=== PATIENT | male | born 1985 | race Caucasian/White ===

== ENCOUNTER 2020-05-09 09:20 | Emergency (ER) | payer SELFPAY ==
[~2020-05-09] VITALS: Ht 162 cm; Wt 80.0 kg
[2020-05-09] MEDS ORDERED: ONDANSETRON 4 MG/2 ML (SDV) Z0FRAN IVP ONE (09:45)
[2020-05-09] MEDS ORDERED: LACTATED RINGERS 1,000 ML IV ONE (09:45)
[2020-05-09 09:56] LABS: BASOPHILS % (AUTO) 0 % (0-10); EOSINOPHILS % (AUTO) 1 % (0-10); HEMATOCRIT 45 % (40-54); HEMOGLOBIN 14.7 G/DL (13.3-17.7); LYMPHOCYTES % (AUTO) 28 % (12-44); MEAN CORPUSCULAR HEMOGLOBIN 29 PG (25-34); MEAN CORPUSCULAR HGB CONC 33 G/DL (32-36); MEAN CORPUSCULAR VOLUME 88 FL (80-99); MEAN PLATELET VOLUME 10.1 FL (7.4-10.4); MONOCYTES % (AUTO) 7 % (0-12); NEUTROPHILS % (AUTO) 64 % (42-75); PLATELET COUNT 293 10^3/uL (130-400); WHITE BLOOD COUNT 5.4 10^3/uL (4.3-11.0)
[2020-05-09 09:57] LABS: LYMPHOCYTES # (AUTO) 1.5 X 10^3 (1.0-4.0); MONOCYTES # (AUTO) 0.4 X 10^3 (0.0-1.0); NEUTROPHILS # (AUTO) 3.4 X 10^3 (1.8-7.8)
[2020-05-09 10:19] LABS: BILIRUBIN,URINE NEGATIVE (NEGATIVE); CLARITY,URINE SLT CLOUDY; COLOR,URINE YELLOW; GLUCOSE, URINE (UA) NEGATIVE (NEGATIVE); KETONES,URINE NEGATIVE (NEGATIVE); LEUKOCYTE ESTERASE ,URINE TRACE (NEGATIVE); NITRITE,URINE NEGATIVE (NEGATIVE); PROTEIN,URINE NEGATIVE (NEGATIVE); RBC,URINE 0-2 /HPF
[2020-05-09 10:20] LABS: BACTERIA,URINE TRACE /HPF; SQUAMOUS EPITHELIAL CELL,UR RARE /HPF
--- NOTE | 2020-05-09 10:28 | ED Abdominal Pain ---
General Chief Complaint: Abdominal/GI Problems Stated Complaint: VOMITING; DIARRHEA; RLQ PAIN Nursing Triage Note: PT REPORTS HE HAS HAD DIARRHEA AND VOMITING SINCE WITH IT WORSENING IN THE PAST 24 HOURS. HE REPORTS HE WAS CONSTIPATED AND NOW HE HAS DIARRHEA. RIGHT OWER QUAD PAIN AND TENDERNESS, LEFT LOWER QUAD PAIN AND TENDERNESS. Sepsis Screen: No Definite Risk Source of Information: Patient Exam Limitations: No Limitations History of Present Illness Date Seen by Provider: May 09, 2020 Time Seen by Provider: 09:30 Initial Comments This 34-year-old gentleman presents to the emergency room as a referral from the urgent care clinic for evaluation of right lower quadrant pain. He has had lower abdominal pain, predominantly in the right lower quadrant, and diarrhea for about 5 days. He denies fever. He denies any exacerbation of pain with walking or riding in a car. Pain seems to be worse just prior to a bowel movement and improves after the bowel movement. He has also had nausea and vomiting and states he is having trouble staying hydrated. Vital signs are unremarkable. He denies any urinary changes. No hematochezia or melena as described. Allergies and Home Medications Allergies Coded Allergies: No Known Drug Allergies (Unverified , 05/09/20) Home Medications Hyoscyamine Sulfate 0.125 Mg Tab.subl, 0.125 MG SL Q4H PRN for CRAMPS Prescribed by: JETT GTZ on 05/09/20 1055 Ondansetron 4 Mg Tab.rapdis, 4 MG SL Q4H PRN for NAUSEA/VOMITING Prescribed by: JETT GTZ on 05/09/20 1055 Patient Home Medication List Home Medication List Reviewed: Yes Review of Systems Review of Systems Constitutional: no symptoms reported EENTM: No Symptoms Reported Respiratory: No Symptoms Reported Cardiovascular: No Symptoms Reported Gastrointestinal: See HPI Genitourinary: No Symptoms Reported Musculoskeletal: no symptoms reported Skin: no symptoms reported Psychiatric/Neurological: No Symptoms Reported Endocrine: No Symptoms Reported Hematologic/Lymphatic: No Symptoms Reported Past Kfpfmdp-Ldlkrc-Afslxg Hx Past Med/Social Hx: Reviewed Nursing Past Med/Soc Hx Patient Social History Alcohol Use: Denies Use Drug of Choice: marijuana Smoking Status: Current Everyday Smoker Type Used: Cigarettes 2nd Hand Smoke Exposure: No Recent Infectious Disease Expo: No Recent Hopitalizations: No Seasonal Allergies Seasonal Allergies: No Past Medical History Surgeries: No Respiratory: No Cardiac: No Neurological: No Genitourinary: No Gastrointestinal: No Musculoskeletal: No Endocrine: No HEENT: No Cancer: No Psychosocial: No Integumentary: No Blood Disorders: No Physical Exam Vital Signs Vital Signs - First Documented 05/09/20 09:39 Temp 36.2 Pulse 84 Resp 16 B/P (MAP) 124/87 (99) Pulse Ox 100 O2 Delivery Room Air Capillary Refill : Less Than 3 Seconds Height/Weight/BMI Height: '" Weight: lbs. oz. 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, no motor/sensory deficits, alert, normal mood/affect, oriented x 3 Skin: normal color, warm/dry Progress/Results/Core Measures Results/Orders Lab Results Laboratory Tests Test 05/09/20 09:32 05/09/20 09:55 Range/Units White Blood Count 5.4 4.3-11.0 10^3/uL Red Blood Count 5.08 4.35-5.85 10^6/uL Hemoglobin 14.7 13.3-17.7 G/DL Hematocrit 45 40-54 % Mean Corpuscular Volume 88 80-99 FL Mean Corpuscular Hemoglobin 29 25-34 PG Mean Corpuscular Hemoglobin Concent 33 32-36 G/DL Red Cell Distribution Width 13.0 10.0-14.5 % Platelet Count 293 130-400 10^3/uL Mean Platelet Volume 10.1 7.4-10.4 FL Immature Granulocyte % (Auto) 0 % Neutrophils (%) (Auto) 64 42-75 % Lymphocytes (%) (Auto) 28 12-44 % Monocytes (%) (Auto) 7 0-12 % Eosinophils (%) (Auto) 1 0-10 % Basophils (%) (Auto) 0 0-10 % Neutrophils # (Auto) 3.4 1.8-7.8 X 10^3 Lymphocytes # (Auto) 1.5 1.0-4.0 X 10^3 Monocytes # (Auto) 0.4 0.0-1.0 X 10^3 Eosinophils # (Auto) 0.0 0.0-0.3 10^3/uL Basophils # (Auto) 0.0 0.0-0.1 10^3/uL Immature Granulocyte # (Auto) 0.0 0.0-0.1 10^3/uL Sodium Level 140 135-145 MMOL/L Potassium Level 3.7 3.6-5.0 MMOL/L Chloride Level 104 98-107 MMOL/L Carbon Dioxide Level 29 21-32 MMOL/L Anion Gap 7 5-14 MMOL/L Blood Urea Nitrogen 10 7-18 MG/DL Creatinine 1.09 0.60-1.30 MG/DL Estimat Glomerular Filtration Rate > 60 BUN/Creatinine Ratio 9 Glucose Level 102 70-105 MG/DL Calcium Level 9.7 8.5-10.1 MG/DL Corrected Calcium 9.3 8.5-10.1 MG/DL Magnesium Level 2.4 1.6-2.4 MG/DL Total Bilirubin 0.2 0.1-1.0 MG/DL Aspartate Amino Transf (AST/SGOT) 16 5-34 U/L Alanine Aminotransferase (ALT/SGPT) 17 0-55 U/L Alkaline Phosphatase 63 40-136 U/L Total Protein 7.5 6.4-8.2 GM/DL Albumin 4.5 3.2-4.5 GM/DL Urine Color YELLOW Urine Clarity SLT CLOUDY Urine pH 6.0 5-9 Urine Specific [place] >=1.030 1.016-1.022 Urine Protein NEGATIVE NEGATIVE Urine Glucose (UA) NEGATIVE NEGATIVE Urine Ketones NEGATIVE NEGATIVE Urine Nitrite NEGATIVE NEGATIVE Urine Bilirubin NEGATIVE NEGATIVE Urine Urobilinogen 0.2 < = 1.0 MG/DL Urine Leukocyte Esterase TRACE H NEGATIVE Urine RBC (Auto) NEGATIVE NEGATIVE Urine RBC 0-2 /HPF Urine WBC 5-10 H /HPF Urine Squamous Epithelial Cells RARE /HPF Urine Crystals NONE /LPF Urine Bacteria TRACE /HPF Urine Casts NONE /LPF Urine Mucus MODERATE H /LPF Urine Culture Indicated YES My Orders Orders - JETT MAYNARD MD Ua Culture If Indicated (05/09/20 09:39) Cbc With Automated Diff (05/09/20 09:39) Comprehensive Metabolic Panel (05/09/20 09:39) Magnesium (05/09/20 09:39) Ed Iv/Invasive Line Start (05/09/20 09:39) Ondansetron Injection (Zofran Injectio (05/09/20 09:45) Lactated Ringers (Lr 1000 Ml Iv Solution (05/09/20 09:45) Urine Culture (05/09/20 09:55) Ceftriaxone For Im Use (Rocephin For Im (05/09/20 11:00) Lidocaine 1% Inj 20 Ml (Xylocaine 1% Inj (05/09/20 11:00) Azithromycin Tablet (Zithromax Tablet) (05/09/20 11:00) Medications Given in ED Current Medications Medications Dose Ordered Sig/Blanca Route Start Time Stop Time Status Last Admin Dose Admin Azithromycin 1,000 mg ONCE ONCE PO 05/09/20 11:00 05/09/20 11:01 DC 05/09/20 10:54 1,000 MG Ceftriaxone Sodium 250 mg ONCE ONCE IM 05/09/20 11:00 05/09/20 11:01 DC 05/09/20 10:54 250 MG Lactated Ringer's 1,000 ml @ 0 mls/hr Q0M ONCE IV 05/09/20 09:45 05/09/20 09:48 DC 05/09/20 09:53 1,000 MLS/HR Lidocaine HCl 0.9 ml ONCE ONCE INJ 05/09/20 11:00 05/09/20 11:01 DC 05/09/20 10:54 0.9 ML Ondansetron HCl 8 mg ONCE ONCE IVP 05/09/20 09:45 05/09/20 09:48 DC 05/09/20 09:53 8 MG Vital Signs/I&O 05/09/20 05/09/20 09:39 10:46 Temp 36.2 36.3 Pulse 84 80 Resp 16 16 B/P (MAP) 124/87 (99) 122/76 Pulse Ox 100 99 O2 Delivery Room Air Room Air Blood Pressure Mean: 99 Progress Progress Note : Progress Note Patient was treated with a liter of IV fluid and Zofran. Labs were relatively unremarkable. There was a bit of a lymphocytic shift suggesting viral illness. UA showed subtle pyuria. Patient was sexually active 4 months ago but denies any urinary tract symptoms. I offered STI testing which he accepted. He was given empiric treatment with Rocephin 250 mg IM and a azithromycin 1 g orally. Exam and work-up were not consistent with appendicitis, but he was given return precautions for worsening symptoms. See discharge instructions for discussion. Departure Impression Primary Impression: Nausea vomiting and diarrhea Additional Impressions: Lower abdominal pain Pyuria Disposition: 01 HOME, SELF-CARE Condition: Improved Departure-Patient Inst. Decision time for Depature: 10:46 Referrals: NO,LOCAL PHYSICIAN (PCP/Family) Primary Care Physician Patient Instructions: Abdominal Pain, Adult ED, Viral Gastroenteritis Add. Discharge Instructions: Adhere to a clear liquid diet for the next 24 hours. Then gradually advance your diet with small quantities of bland food as tolerated. Avoid fatty or greasy foods or milk products until your diarrhea has been resolved for 24 hours. Follow-up with your primary care provider in 4 or 5 days to review urine culture results. Take Zofran (ondansetron) dissolved under the tongue every 4 hours as needed for nausea and vomiting. Take Levsin (hyoscyamine) dissolved under the tongue every 4 hours as needed for abdominal cramping and diarrhea. Call with questions or concerns. Return to the emergency room if you have worsening symptoms. Avoid any sexual activity until the results of your urine culture return. All discharge instructions reviewed with patient and/or family. Voiced understanding. Scripts Ondansetron (Ondansetron Odt) 4 Mg Tab.rapdis 4 MG SL Q4H PRN for NAUSEA/VOMITING, #10 TAB Prov: JETT MAYNARD MD 05/09/20 Hyoscyamine Sulfate (Levsin-Sl) 0.125 Mg Tab.subl 0.125 MG SL Q4H PRN for CRAMPS, #10 TAB Prov: JETT MAYNARD MD 05/09/20 JETT MAYNARD MD May 09, 2020 10:28
[2020-05-09 10:30] LABS: POTASSIUM 3.7 MMOL/L (3.6-5.0); SODIUM 140 MMOL/L (135-145)
[2020-05-09 10:31] LABS: ALANINE AMINOTRANSFERASE 17 U/L (0-55); ALKALINE PHOSPHATASE 63 U/L (40-136); BILIRUBIN,TOTAL 0.2 MG/DL (0.1-1.0); BUN/CREATININE RATIO 9; CALCIUM 9.7 MG/DL (8.5-10.1); CARBON DIOXIDE 29 MMOL/L (21-32); CHLORIDE 104 MMOL/L (98-107); CREATININE SERUM 1.09 MG/DL (0.60-1.30); GFR ESTIMATED > 60; GLUCOSE 102 MG/DL (70-105); MAGNESIUM 2.4 MG/DL (1.6-2.4); TOTAL PROTEIN 7.5 GM/DL (6.4-8.2)
[2020-05-09 10:32] LABS: ALBUMIN 4.5 GM/DL (3.2-4.5)
[2020-05-09 10:46] VITALS: BP 122/76
[2020-05-09] MEDS ORDERED: ONDA4TAB11 SL (10:55)
[2020-05-09] MEDS ORDERED: HYOS0.1283 SL (10:55)
[2020-05-09] MEDS ORDERED: cefTRIAXone 250 MG/ML vial (IM ONLY) IM ONE (11:00)
[2020-05-09] MEDS ORDERED: AZITHROMYCIN 250 MG TAB (ZITHROMAX) PO ONE (11:00)
[2020-05-09] MEDS ORDERED: LIDOCAINE 1% INJ 20 ML 20 ML VIAL INJ ONE (11:00)
== END 2020-05-09 10:57 | disposition home or self-care (01) ==
LOC: ER FS 09:24
DX: R11.2 Nausea with vomiting, unspecified (principal); R19.7 Diarrhea, unspecified; R10.31 Right lower quadrant pain; R82.81 Pyuria; F17.210 Nicotine dependence, cigarettes, uncomplicated
CPT/HCPCS: 36415; 80053; 81000; 83735; 85025; 87088; 87491; 87591

== ENCOUNTER 2020-10-02 08:09 | Emergency (ER) | payer SELFPAY ==
[~2020-10-02] VITALS: Ht 167 cm; Wt 85.0 kg
[~2020-10-02 08:09] MED LIST: HYOS0.1283 SL; ONDA4TAB11 SL
--- NOTE | 2020-10-02 08:27 | ED Abdominal Pain ---
General Chief Complaint: Abdominal/GI Problems Stated Complaint: RLQ PAIN Source of Information: Patient History of Present Illness Date Seen by Provider: Oct 02, 2020 Time Seen by Provider: 08:13 Initial Comments 35-year-old male presenting with right sided abdominal pain. He states he woke up around 5 AM with the pain. He had one episode of vomiting and diarrhea. He still has some nausea. He has not taken anything for pain and has not had anything to eat or drink since yesterday. He has no fever or chills. He denies any pain or burning with urination but did have blood in his urine a week ago. At that time he thought that he had a kidney stone but did not go to see anyone about it. He denies any surgery on his belly. He states he has not had symptoms like this before. He was seen in May for something similar and was treated for urine infection. Timing/Duration: 1-3 Hours (woke him up at 5 am) Severity/Quality: Severe, Cramping, Sharp Location: RUQ, RLQ, Flank Radiation: RUQ, RLQ, Flank Activities at Onset: Sleeping Modifying Factors: Worsens With Movement, Worsens With Palpation Associated Symptoms: No Back Pain, No Chest Pain, No Diaphoresis, No Fever/Chills, No Fatigue, No Headache, No Heartburn; Nausea/Vomiting (x 1); No Rash, No Shortness of Air, No Swelling/Mass in Abdomen, No Syncope, No Weakness Allergies and Home Medications Allergies Coded Allergies: No Known Drug Allergies (Unverified , 05/09/20) Home Medications Dicyclomine HCl 20 Mg Tablet, 20 MG PO QID PRN for abdominal cramps/pain Prescribed by: MELANIE QURESHI on 10/02/20 1016 Hyoscyamine Sulfate 0.125 Mg Tab.subl, 0.125 MG SL Q4H PRN for CRAMPS Prescribed by: JETT GTZ on 05/09/20 1055 Ondansetron 4 Mg Tab.rapdis, 4 MG SL Q4H PRN for NAUSEA/VOMITING Prescribed by: JETT GTZ on 05/09/20 1055 Patient Home Medication List Home Medication List Reviewed: Yes Review of Systems Review of Systems Constitutional: No chills, No fever EENTM: No Symptoms Reported Respiratory: No Symptoms Reported Cardiovascular: No Symptoms Reported Gastrointestinal: See HPI Genitourinary: See HPI Musculoskeletal: no symptoms reported Skin: no symptoms reported Psychiatric/Neurological: No Symptoms Reported Endocrine: No Symptoms Reported Past Zveftfd-Vemhiv-Ldslao Hx Seasonal Allergies Seasonal Allergies: No Past Medical History Surgeries: No Respiratory: No Cardiac: No Neurological: No Genitourinary: No Gastrointestinal: No Musculoskeletal: No Endocrine: No HEENT: No Cancer: No Psychosocial: No Integumentary: No Blood Disorders: No Physical Exam Vital Signs Vital Signs - First Documented 10/02/20 08:15 Temp 36.5 Pulse 62 Resp 18 B/P (MAP) 141/92 (108) Pulse Ox 98 O2 Delivery Room Air Capillary Refill : Height/Weight/BMI Height: '" Weight: lbs. oz. kg; 30.00 BMI Method: General Appearance: WD/WN, no apparent distress HEENT: PERRL/EOMI, pharynx normal Neck: non-tender, full range of motion, supple, normal inspection Respiratory: chest non-tender, lungs clear, normal breath sounds, no respir atory distress, no accessory muscle use Cardiovascular: normal peripheral pulses, regular rate, rhythm Gastrointestinal: normal bowel sounds, soft, no pulsatile mass; No distended; guarding; No rebound; tenderness (right side of abdomen worse in RLQ and flank than RUQ); No hernia, No mass Extremities: normal range of motion, non-tender, normal inspection, normal capillary refill Back: no CVA tenderness, no vertebral tenderness 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 Worse towards RLQ and flank but hurts from RUQ all the way down Progress/Results/Core Measures Results/Orders Lab Results Laboratory Tests Test 10/02/20 08:29 10/02/20 09:48 Range/Units White Blood Count 5.3 4.3-11.0 10^3/uL Red Blood Count 4.97 4.35-5.85 10^6/uL Hemoglobin 14.7 13.3-17.7 G/DL Hematocrit 44 40-54 % Mean Corpuscular Volume 88 80-99 FL Mean Corpuscular Hemoglobin 30 25-34 PG Mean Corpuscular Hemoglobin Concent 34 32-36 G/DL Red Cell Distribution Width 12.9 10.0-14.5 % Platelet Count 248 130-400 10^3/uL Mean Platelet Volume 10.1 7.4-10.4 FL Immature Granulocyte % (Auto) 0 % Neutrophils (%) (Auto) 64 42-75 % Lymphocytes (%) (Auto) 28 12-44 % Monocytes (%) (Auto) 7 0-12 % Eosinophils (%) (Auto) 1 0-10 % Basophils (%) (Auto) 0 0-10 % Neutrophils # (Auto) 3.4 1.8-7.8 X 10^3 Lymphocytes # (Auto) 1.5 1.0-4.0 X 10^3 Monocytes # (Auto) 0.4 0.0-1.0 X 10^3 Eosinophils # (Auto) 0.0 0.0-0.3 10^3/uL Basophils # (Auto) 0.0 0.0-0.1 10^3/uL Immature Granulocyte # (Auto) 0.0 0.0-0.1 10^3/uL Sodium Level 141 135-145 MMOL/L Potassium Level 4.0 3.6-5.0 MMOL/L Chloride Level 106 98-107 MMOL/L Carbon Dioxide Level 26 21-32 MMOL/L Anion Gap 9 5-14 MMOL/L Blood Urea Nitrogen 9 7-18 MG/DL Creatinine 0.90 0.60-1.30 MG/DL Estimat Glomerular Filtration Rate > 60 BUN/Creatinine Ratio 10 Glucose Level 104 70-105 MG/DL Calcium Level 9.4 8.5-10.1 MG/DL Corrected Calcium 8.5-10.1 MG/DL Total Bilirubin 0.2 0.1-1.0 MG/DL Aspartate Amino Transf (AST/SGOT) 14 5-34 U/L Alanine Aminotransferase (ALT/SGPT) 15 0-55 U/L Alkaline Phosphatase 57 40-136 U/L Total Protein 7.0 6.4-8.2 GM/DL Albumin 4.6 H 3.2-4.5 GM/DL Lipase 110 H 8-78 U/L Urine Color YELLOW Urine Clarity CLEAR Urine pH 6.0 5-9 Urine Specific [place] 1.010 L 1.016-1.022 Urine Protein NEGATIVE NEGATIVE Urine Glucose (UA) NEGATIVE NEGATIVE Urine Ketones NEGATIVE NEGATIVE Urine Nitrite NEGATIVE NEGATIVE Urine Bilirubin NEGATIVE NEGATIVE Urine Urobilinogen 0.2 < = 1.0 MG/DL Urine Leukocyte Esterase TRACE H NEGATIVE Urine RBC (Auto) NEGATIVE NEGATIVE Urine RBC NONE /HPF Urine WBC 5-10 H /HPF Urine Squamous Epithelial Cells 2-5 /HPF Urine Crystals NONE /LPF Urine Bacteria NEGATIVE /HPF Urine Casts NONE /LPF Urine Mucus NEGATIVE /LPF Urine Culture Indicated YES My Orders Orders - MELANIE QURESHI MD Comprehensive Metabolic Panel (10/02/20 08:21) Lipase (10/02/20 08:21) Ua Culture If Indicated (10/02/20 08:21) Ed Iv/Invasive Line Start (10/02/20 08:21) Cbc With Automated Diff (10/02/20 08:21) Ns Iv 1000 Ml (Sodium Chloride 0.9%) (10/02/20 08:36) Ketorolac Injection (Toradol Injection) (10/02/20 08:36) Ondansetron Injection (Zofran Injectio (10/02/20 08:36) Ct Abd/Pelvis Wo(Kidney Stone) (10/02/20 08:36) Ondansetron Injection (Zofran Injectio (10/02/20 08:43) Dicyclomine Injection (Bentyl Injection) (10/02/20 09:58) Urine Culture (10/02/20 09:48) Vital Signs/I&O 10/02/20 10/02/20 08:15 10:20 Temp 36.5 36.5 Pulse 62 72 Resp 18 18 B/P (MAP) 141/92 (108) 130/68 Pulse Ox 98 99 O2 Delivery Room Air Room Air Progress Progress Note #1: Progress Note Obtain basic labs as well as ordered a urinalysis and a CT scan of the abdomen pelvis without contrast to evaluate for kidney stone or appendicitis or colitis or diverticulitis or cholecystitis or pyelonephritis or cystitis. Try IV fluids with Toradol and Zofran to help with hydration, pain, nausea and vomiting. Progress Note #2: Progress Note Labs are all stable without acute significant normality on CBC or chemistry. He does have mild elevation of his lipase up to 110 with cut off of normal at 78 for out lab reference. His CT scan was read out as no acute process and he had no kidney stones or hydroureter/hydronephrosis. His appendix and colon were visualized and did not demonstrate any signs of appendicitis. He has no free fluid in his abdomen and no lymphadenopathy. On recheck of the patient she felt like he could give a urine specimen at this point but states that his pain was still similar to when he arrived. We will try adding on Bentyl for abdominal cramping and pain. Provided he does not show signs of infection on the urine we will plan on treating for abdominal cramping and encourage fluids and rest. Follow-up through the clinic for continued concerns and if not improving Progress Note #3: Progress Note UA shows trace LE with WBC enough to trigger a reflexive urine culture. With him not having painful urination or elevated WBC will await culture and treat symp tomatically with Bentyl for pain and cramping. Diagnostic Imaging Diagonstic Imaging: CT Plain Films/CT/US/NM/MRI: abdomen, pelvis Comments NAME: THEA BARCENAS [facility] REC#: [id number] PT STATUS: REG ER : 1985 PHYSICIAN: MELANIE QURESHI MD ADMIT DATE: 10/02/20/ER FS Draft Date of Exam:10/02/20 CT ABD/PELVIS WO(KIDNEY STONE) INDICATION: Abdominal pain, right flank pain. TECHNIQUE: Multiple contiguous axial images were obtained through the abdomen and pelvis without the use of intravenous contrast. Auto Exposure Controls were utilized during the CT exam to meet ALARA standards for radiation dose reduction. There is no prior study for comparison. Visualized portions of the lung bases are clear. There were no pleural fluid collections. There is no free intraperitoneal air. The liver shows no focal lesion without contrast. Gallbladder appears normal. The spleen is not enlarged and shows no focal lesion. Adrenals and pancreas appear normal. The kidneys bilaterally show no radiopaque stone or hydronephrosis. There is no retroperitoneal mass or adenopathy. There is no ascites or abnormal fluid collections. Visualized bowel loops including the appendix appear normal. There is no pelvic mass or free fluid. IMPRESSION: Negative CT of the abdomen and pelvis without contrast. There is no evidence of urinary tract stone or hydronephrosis. Dictated on workstation # [id number] Dict: 10/02/20 0904 Trans: 10/02/20 0909 [facility] [id number] Interpreted by: THEA BARBOSA MD Electronically signed by: Departure Impression Primary Impression: Abdominal cramping in right lower quadrant Additional Impression: Right flank pain Disposition: HOME, SELF-CARE Condition: Stable Departure-Patient Inst. Decision time for Depature: 10:16 Referrals: NO,LOCAL PHYSICIAN (PCP) Primary Care Physician [facility] Patient Instructions: Flank Pain ED, Abdominal Pain, Adult ED Add. Discharge Instructions: Stay well hydrated and drink plenty of water and electrolyte drinks. Follow a bland diet for next 24 to 48 hours and if not improving or if having worsening symptoms such as fever over 101 F, uncontrolled vomiting then return or seek medical care for recheck. Take Bentyl (Dicyclomine) for pain and cramping. This will help with nausea as well. All discharge instructions reviewed with patient and/or family. Voiced understanding. Scripts Dicyclomine HCl (Dicyclomine HCl) 20 Mg Tablet 20 MG PO QID PRN for abdominal cramps/pain for 5 Days, #20 TAB 0 Refills Prov: MELANIE QURESHI MD 10/02/20 Work/School Note: Work Release Form Date Seen in the Emergency Department: Oct 02, 2020 Return to Work: Oct 03, 2020 Restrictions: No Restrictions MELANIE QURESHI MD Oct 02, 2020 08:27
[2020-10-02 08:35] LABS: HEMATOCRIT 44 % (40-54); HEMOGLOBIN 14.7 G/DL (13.3-17.7); MEAN CORPUSCULAR HEMOGLOBIN 30 PG (25-34); MEAN CORPUSCULAR HGB CONC 34 G/DL (32-36); MEAN CORPUSCULAR VOLUME 88 FL (80-99); PLATELET COUNT 248 10^3/uL (130-400); WHITE BLOOD COUNT 5.3 10^3/uL (4.3-11.0)
[2020-10-02 08:36] LABS: BASOPHILS % (AUTO) 0 % (0-10); EOSINOPHILS % (AUTO) 1 % (0-10); LYMPHOCYTES # (AUTO) 1.5 X 10^3 (1.0-4.0); LYMPHOCYTES % (AUTO) 28 % (12-44); MEAN PLATELET VOLUME 10.1 FL (7.4-10.4); MONOCYTES # (AUTO) 0.4 X 10^3 (0.0-1.0); MONOCYTES % (AUTO) 7 % (0-12); NEUTROPHILS # (AUTO) 3.4 X 10^3 (1.8-7.8); NEUTROPHILS % (AUTO) 64 % (42-75)
[2020-10-02] MEDS ORDERED: KETOROLAC 30 MG/ML VIAL IVP STA (08:36)
[2020-10-02] MEDS ORDERED: ONDANSETRON 4 MG/2 ML (SDV) Z0FRAN IVP STA (08:36)
[2020-10-02] MEDS ORDERED: NS IV 1000 ML 1,000 ML IV STA (08:36)
[2020-10-02] MEDS ORDERED: ONDANSETRON 4 MG/2 ML (SDV) Z0FRAN ONE (08:43)
[2020-10-02 08:59] LABS: ALANINE AMINOTRANSFERASE 15 U/L (0-55); ALBUMIN 4.6 GM/DL (3.2-4.5); ALKALINE PHOSPHATASE 57 U/L (40-136); BILIRUBIN,TOTAL 0.2 MG/DL (0.1-1.0); BUN/CREATININE RATIO 10; CALCIUM 9.4 MG/DL (8.5-10.1); CARBON DIOXIDE 26 MMOL/L (21-32); CHLORIDE 106 MMOL/L (98-107); GFR ESTIMATED > 60; GLUCOSE 104 MG/DL (70-105); SODIUM 141 MMOL/L (135-145)
[2020-10-02 09:00] LABS: LIPASE 110 U/L (8-78)
--- NOTE | 2020-10-02 09:09 | Diagnostic Imaging Report ---
INDICATION: Abdominal pain, right flank pain. TECHNIQUE: Multiple contiguous axial images were obtained through the abdomen and pelvis without the use of intravenous contrast. Auto Exposure Controls were utilized during the CT exam to meet ALARA standards for radiation dose reduction. There is no prior study for comparison. Visualized portions of the lung bases are clear. There were no pleural fluid collections. There is no free intraperitoneal air. The liver shows no focal lesion without contrast. Gallbladder appears normal. The spleen is not enlarged and shows no focal lesion. Adrenals and pancreas appear normal. The kidneys bilaterally show no radiopaque stone or hydronephrosis. There is no retroperitoneal mass or adenopathy. There is no ascites or abnormal fluid collections. Visualized bowel loops including the appendix appear normal. There is no pelvic mass or free fluid. IMPRESSION: Negative CT of the abdomen and pelvis without contrast. There is no evidence of urinary tract stone or hydronephrosis. Dictated by: Dictated on workstation # [id number]
[2020-10-02] MEDS ORDERED: DICYCLOMINE 10 MG/ML (BENTYL) 2 ML AMP IM STA (09:58)
[2020-10-02 10:05] LABS: BILIRUBIN,URINE NEGATIVE (NEGATIVE); CLARITY,URINE CLEAR; COLOR,URINE YELLOW; GLUCOSE, URINE (UA) NEGATIVE (NEGATIVE); KETONES,URINE NEGATIVE (NEGATIVE); NITRITE,URINE NEGATIVE (NEGATIVE); PROTEIN,URINE NEGATIVE (NEGATIVE)
[2020-10-02 10:06] LABS: BACTERIA,URINE NEGATIVE /HPF; LEUKOCYTE ESTERASE ,URINE TRACE (NEGATIVE)
[2020-10-02] MEDS ORDERED: DICY20TA10 PO (10:16)
[2020-10-02 10:20] VITALS: BP 130/68
== END 2020-10-02 10:21 | disposition home or self-care (01) ==
LOC: EDUNIT# 08:09 → ER FS 08:11
DX: R10.31 Right lower quadrant pain (principal)
CPT/HCPCS: 36415; 74176; 80053; 81000; 83690; 85025; 87088

== ENCOUNTER 2020-10-04 08:26 | Emergency (ER) | payer SELFPAY ==
[~2020-10-04] VITALS: Ht 167.7 cm; Wt 77.3 kg
[~2020-10-04 08:26] MED LIST changes: +DICY20TA10 PO
[2020-10-04] MEDS ORDERED: fentaNYL INJ 100 MCG/2 ML AMP IVP STA (08:41)
[2020-10-04] MEDS ORDERED: NS IV 1000 ML 1,000 ML IV STA (08:41)
[2020-10-04] MEDS ORDERED: PANTOPRAZOLE 40 MG (PROTONIX) VIAL IV STA (08:41)
[2020-10-04] MEDS ORDERED: ONDANSETRON 4 MG/2 ML (SDV) Z0FRAN IVP STA (08:41)
[2020-10-04] MEDS ORDERED: IOHEXOL 350 MG/ML 100 ML (OMNIPAQUE 350) VIAL IV ONE (08:45)
[2020-10-04] MEDS ORDERED: LIDOCAINE 2% VISCOUS 15 ML UDC PO ONE (08:45)
[2020-10-04] MEDS ORDERED: HOLD METFORMIN - RECEIVED CONTRAST 20 ML VIAL IV SCH (08:45)
[2020-10-04] MEDS ORDERED: ANTACID SUSP 30 ML UDC (MYLANTA) PO ONE (08:45)
[2020-10-04] MEDS ORDERED: NS 100 ML (IVPB) BAG IV ONE (08:45)
[2020-10-04] MEDS ORDERED: CATHETER FLUSH 10 ML SYR IV PRN (08:45)
--- NOTE | 2020-10-04 08:50 | ED GI ---
General Chief Complaint: Abdominal/GI Problems Stated Complaint: VOMITING; DIARRHEA; ABD PAIN Source of Information: Patient, Old Records History of Present Illness Date Seen by Provider: Oct 04, 2020 Time Seen by Provider: 08:28 Initial Comments 35 yo male presenting with continued n/v/d and abdominal pain since being seen FridayOctober 02. He reports waking up this morning and had burning pain in epigastric area and vomiting with blood. He has had subjective fever and chills but not taken his temperature. He denies any trauma to abdomen. He has had about 4 episodes of watery diarrhea a day. He felt like there was some blood in his diarrhea this am. He denies feeling light headed or dizzy. He has increased pain with palpation and movement or if he is trying to do anything strenuous. He has been staying home from work and just trying to drink fluids and eat small amounts. He denies any significant improvement since Friday. Timing/Duration: 4-5 Days Severity/Quality: Burning (epigastric), Cramping (diffuse but worse along right side) Location: Epigastric (burning pain), Generalized Abdomen (cramping diffuse but worse along right side. ) Radiation: No Radiation Activities at Onset: None Associated Symptoms: No Back Pain, No Chest Pain, No Diaphoresis; Fever/Chills (subjective), Fatigue; No Headache; Heartburn, Nausea/Vomiting; No Rash, No Shortness of Air, No Swelling/Mass in Abdomen, No Syncope, No Weakness Allergies and Home Medications Allergies Coded Allergies: No Known Drug Allergies (Unverified , 05/09/20) Home Medications Dicyclomine HCl 20 Mg Tablet, 20 MG PO QID PRN for abdominal cramps/pain Prescribed by: MELANIE QURESHI on 10/02/20 1016 Hydrocodone/Acetaminophen 1 Each Tablet, 1 TAB PO Q8H PRN for PAIN-SEVERE (8-10) Prescribed by: MELANIE QURESHI on 10/04/20 1202 Hyoscyamine Sulfate 0.125 Mg Tab.subl, 0.125 MG SL Q4H PRN for CRAMPS Prescribed by: MELANIE QURESHI on 10/04/20 1202 Ondansetron 4 Mg Tab.rapdis, 4 MG SL Q4H PRN for NAUSEA/VOMITING Prescribed by: JETT GTZ on 05/09/20 1055 Ondansetron 4 Mg Tab.rapdis, 4 MG PO Q6H PRN for NAUSEA/VOMITING Prescribed by: MELANIE QURESHI on 10/04/20 1202 Patient Home Medication List Home Medication List Reviewed: Yes Review of Systems Review of Systems Constitutional: No chills, No fever EENTM: No Symptoms Reported Respiratory: No Symptoms Reported Cardiovascular: No Symptoms Reported Gastrointestinal: See HPI Genitourinary: No Symptoms Reported Musculoskeletal: no symptoms reported Skin: no symptoms reported Psychiatric/Neurological: No Symptoms Reported Endocrine: No Symptoms Reported Past Dljukvk-Smdact-Clugbv Hx Seasonal Allergies Seasonal Allergies: No Past Medical History Surgeries: No Respiratory: No Cardiac: No Neurological: No Genitourinary: No Gastrointestinal: No Musculoskeletal: No Endocrine: No HEENT: No Cancer: No Psychosocial: No Integumentary: No Blood Disorders: No Physical Exam Vital Signs Vital Signs - First Documented 10/04/20 08:30 Temp 36.5 Pulse 80 Resp 16 B/P (MAP) 136/91 (106) Pulse Ox 100 O2 Delivery Room Air Capillary Refill : Height/Weight/BMI Height: '" Weight: lbs. oz. kg; 30.00 BMI Method: General Appearance: WD/WN, no apparent distress HEENT: PERRL/EOMI, pharynx normal Neck: non-tender, full range of motion, supple, normal inspection Respiratory: chest non-tender, lungs clear, normal breath sounds Cardiovascular: normal peripheral pulses, regular rate, rhythm Gastrointestinal: normal bowel sounds, soft, no pulsatile mass; No distended, No guarding, No rebound; tenderness (diffuse mild tenderness to palpation) Rectal: deferred Extremities: normal range of motion, non-tender, normal inspection, normal capillary refill Back: no CVA tenderness, no vertebral tenderness Neurologic/Psychiatric: physician chief of pathology II-XII nml as tested, alert, oriented x 3 Skin: normal color, warm/dry Images 1 - mild tenderness to palpation of abdomen diffusely but worse in epigastric and right side Focused Exam Lactate Level 10/04/20 09:10: Lactic Acid Level 0.86 Lactic Acid Level Laboratory Tests Test 10/04/20 09:10 Lactic Acid Level 0.86 MMOL/L (0.50-2.00) Progress/Results/Core Measures Results/Orders Lab Results Laboratory Tests Test 10/04/20 08:50 10/04/20 09:10 10/04/20 12:15 Range/Units White Blood Count 4.5 4.3-11.0 10^3/uL Red Blood Count 4.72 4.35-5.85 10^6/uL Hemoglobin 13.8 13.3-17.7 G/DL Hematocrit 42 40-54 % Mean Corpuscular Volume 88 80-99 FL Mean Corpuscular Hemoglobin 29 25-34 PG Mean Corpuscular Hemoglobin Concent 33 32-36 G/DL Red Cell Distribution Width 12.8 10.0-14.5 % Platelet Count 225 130-400 10^3/uL Mean Platelet Volume 10.3 7.4-10.4 FL Immature Granulocyte % (Auto) 0 % Neutrophils (%) (Auto) 64 42-75 % Lymphocytes (%) (Auto) 28 12-44 % Monocytes (%) (Auto) 7 0-12 % Eosinophils (%) (Auto) 0 0-10 % Basophils (%) (Auto) 0 0-10 % Neutrophils # (Auto) 2.9 1.8-7.8 X 10^3 Lymphocytes # (Auto) 1.3 1.0-4.0 X 10^3 Monocytes # (Auto) 0.3 0.0-1.0 X 10^3 Eosinophils # (Auto) 0.0 0.0-0.3 10^3/uL Basophils # (Auto) 0.0 0.0-0.1 10^3/uL Immature Granulocyte # (Auto) 0.0 0.0-0.1 10^3/uL Sodium Level 140 135-145 MMOL/L Potassium Level 4.3 3.6-5.0 MMOL/L Chloride Level 106 98-107 MMOL/L Carbon Dioxide Level 29 21-32 MMOL/L Anion Gap 5 5-14 MMOL/L Blood Urea Nitrogen 11 7-18 MG/DL Creatinine 0.94 0.60-1.30 MG/DL Estimat Glomerular Filtration Rate > 60 BUN/Creatinine Ratio 12 Glucose Level 91 70-105 MG/DL Calcium Level 9.0 8.5-10.1 MG/DL Corrected Calcium 8.8 8.5-10.1 MG/DL Total Bilirubin < 0.2 0.1-1.0 MG/DL Aspartate Amino Transf (AST/SGOT) 18 5-34 U/L Alanine Aminotransferase (ALT/SGPT) 17 0-55 U/L Alkaline Phosphatase 51 40-136 U/L Total Protein 6.6 6.4-8.2 GM/DL Albumin 4.2 3.2-4.5 GM/DL Lipase 32 8-78 U/L Lactic Acid Level 0.86 0.50-2.00 MMOL/L My Orders Orders - MELANIE QURESHI MD Comprehensive Metabolic Panel (10/04/20 08:41) Lipase (10/04/20 08:41) Ed Iv/Invasive Line Start (10/04/20 08:41) Cbc With Automated Diff (10/04/20 08:41) Ct Abdomen/Pelvis W (10/04/20 08:41) Ns Iv 1000 Ml (Sodium Chloride 0.9%) (10/04/20 08:41) Ondansetron Injection (Zofran Injectio (10/04/20 08:41) Pantoprazole Injection (Protonix Injecti (10/04/20 08:41) Fentanyl Inj (Sublimaze Injection) (10/04/20 08:41) Lidocaine 2% Viscous 15 Ml (Xylocaine Vi (10/04/20 08:45) Antacid Suspension (Mylanta Suspension (10/04/20 08:45) Lactic Acid Analyzer (10/04/20 08:43) Iohexol Injection (Omnipaque 350 Mg/Ml 1 (10/04/20 08:45) Received Contrast (Hold Metformin- Contr (10/04/20 08:45) Ns (Ivpb) (Sodium Chloride 0.9% Ivpb Bag (10/04/20 08:45) Sodium Chloride Flush (Catheter Flush Sy (10/04/20 08:45) Coronavirus Sars-Cov-2 So 2018 (10/04/20 11:57) Medications Given in ED Current Medications Medications Dose Ordered Sig/Blanca Route Start Time Stop Time Status Last Admin Dose Admin Al Hydrox/Mg Hydrox/Simethicone 30 ml ONCE ONCE PO 10/04/20 08:45 10/04/20 08:46 DC 10/04/20 09:00 30 ML Iohexol 100 ml ONCE ONCE IV 10/04/20 08:45 10/04/20 08:46 DC 10/04/20 09:07 100 ML Lidocaine HCl 15 ml ONCE ONCE PO 10/04/20 08:45 10/04/20 08:46 DC 10/04/20 09:01 15 ML Sodium Chloride 10 ml NEEDED PRN IV 10/04/20 08:45 10/04/20 12:17 DC 10/04/20 09:07 10 ML Sodium Chloride 100 ml ONCE ONCE IV 10/04/20 08:45 10/04/20 08:46 DC 10/04/20 09:07 100 ML Vital Signs/I&O 10/04/20 10/04/20 08:30 12:12 Temp 36.5 Pulse 80 70 Resp 16 14 B/P (MAP) 136/91 (106) 122/68 Pulse Ox 100 97 O2 Delivery Room Air Room Air Progress Progress Note #1: Progress Note With continued symptoms and now reporting that he is vomiting blood will check labs again to see if any change from Friday. Order CT scan with IV contrast to see if anything appears different. Add on lactic acid to see if he might have indication of ischemic bowel or infection with him having complaint of subjective fever and chills at home. Give IVF for hydration, Fentanyl 50 mcg IV for pain, Zofran 4 mg IV for nausea, Protonix 40 m g IV for gastritis/GERD and pain, GI cocktail for gastitis and GERD. Differential diagnosis includes peptic ulcer disease, gallbladder disease, cholecystitis, colitis, diverticulitis, gastroenteritis, Brii-Garcia tear, food poisoning. Progress Note #2: Time: 09:29 Progress Note No acute significant abnormality on labs. Stable CBC and Chemistry without elevation of liver enzymes or WBC count. CT scan report still negative and not showing appendicitis, cholecystitis, free air, colitis, diverticulitis, mass or acute process to account for his symptoms. BUN and Cr stable and not showing significant dehydration or acute kidney injury. Will check to see if he is feeling better but likely will continue medicine for cramping pain and give meds for gastritis/gerd. Progress Note #3: Progress Note pt reports feeling better. Will treat for gastritis/GERD. Discharge to home with return precautions and stressed that if he has more concerns/issues the next step would likely be clinic setting him up for endoscopy or colonoscopy. Diagnostic Imaging Diagonstic Imaging: CT Plain Films/CT/US/NM/MRI: abdomen, pelvis Comments NAME: THEA BARCENAS REC#: [id number] PT STATUS: REG ER : 1985 PHYSICIAN: MELANIE QURESHI MD ADMIT DATE: 10/04/20/ER FS Draft Date of Exam:10/04/20 CT ABDOMEN/PELVIS W PROCEDURE: CT abdomen and pelvis with contrast. TECHNIQUE: Multiple contiguous axial images were obtained through the abdomen and pelvis after administration of intravenous contrast. Auto Exposure Controls were utilized during the CT exam to meet ALARA standards for radiation dose reduction. All CT scans use one or more of the following dose optimizing techniques: automated exposure control, MA and/or KvP adjustment based on patient size and exam type or iterative reconstruction. INDICATION: Generalized abdominal pain, nausea and vomiting COMPARISON: None. FINDINGS: Lung bases are clear. The gallbladder, solid organs, vascular structures and bowel are unremarkable. The appendix is normal. There is no free air or free fluid. There is no significant constipation. There is no hernia. Prostate and urinary bladder are grossly normal. There is no lymphadenopathy. Osseous structures are age-appropriate. IMPRESSION: Negative CT abdomen and pelvis. Dictated on workstation # [id number] Dict: 10/04/20917 Trans: 10/04/20920 [facility] [id number] Interpreted by: BOB QUISPE Electronically signed by: Reviewed: Reviewed by Me Departure Impression Primary Impression: Nausea vomiting and diarrhea Additional Impressions: Epigastric abdominal pain Gastritis Qualified Codes: K29.01 - Acute gastritis with bleeding Disposition: HOME, SELF-CARE Condition: Stable Departure-Patient Inst. Decision time for Depature: 11:58 Referrals: MAYA CROSS,LOCAL PHYSICIAN (PCP) Primary Care Physician [facility] Patient Instructions: Nausea and Vomiting, Adult ED, Gastritis ED, Acid Reflux, Adult and Adolescent ED, Diarrhea, Adult ED, Abdominal Pain, Adult ED Add. Discharge Instructions: Stay well hydrated and follow a liquid and bland diet Use medicine for pain/cramping, nausea, acid in your stomach. Check with clinic and establish care with a provider for continued problems. If not improving you may need to see surgeon such as Dr. Cross for a scope to look at lining of your stomach or colon All discharge instructions reviewed with patient and/or family. Voiced understan dennis. Scripts Hydrocodone/Acetaminophen (Hydrocodone-Acetamin 5-325 mg) 1 Each Tablet 1 TAB PO Q8H PRN for PAIN-SEVERE (8-10) for 2 Days, #6 TAB 0 Refills Prov: MELANIE QURESHI MD 10/04/20 Ondansetron (Ondansetron Odt) 4 Mg Tab.rapdis 4 MG PO Q6H PRN for NAUSEA/VOMITING for 2 Days, #8 TAB 0 Refills Prov: MELANIE QURESHI MD 10/04/20 Hyoscyamine Sulfate (Levsin-Sl) 0.125 Mg Tab.subl 0.125 MG SL Q4H PRN for CRAMPS, #10 TAB Prov: MELANIE QURESHI MD 10/04/20 Work/School Note: Work Release Form Date Seen in the Emergency Department: Oct 04, 2020 Return to Work: Oct 06, 2020 Restrictions: Return-No Vomiting(24hrs) MELANIE QURESHI MD Oct 04, 2020 08:50
[2020-10-04 09:10] LABS: HEMATOCRIT 42 % (40-54); HEMOGLOBIN 13.8 G/DL (13.3-17.7); LYMPHOCYTES % (AUTO) 28 % (12-44); MEAN CORPUSCULAR HEMOGLOBIN 29 PG (25-34); MEAN CORPUSCULAR HGB CONC 33 G/DL (32-36); MEAN CORPUSCULAR VOLUME 88 FL (80-99); MEAN PLATELET VOLUME 10.3 FL (7.4-10.4); NEUTROPHILS % (AUTO) 64 % (42-75); PLATELET COUNT 225 10^3/uL (130-400); WHITE BLOOD COUNT 4.5 10^3/uL (4.3-11.0)
[2020-10-04 09:11] LABS: BASOPHILS % (AUTO) 0 % (0-10); EOSINOPHILS % (AUTO) 0 % (0-10); LYMPHOCYTES # (AUTO) 1.3 X 10^3 (1.0-4.0); MONOCYTES # (AUTO) 0.3 X 10^3 (0.0-1.0); MONOCYTES % (AUTO) 7 % (0-12); NEUTROPHILS # (AUTO) 2.9 X 10^3 (1.8-7.8)
[2020-10-04 09:20] LABS: BUN/CREATININE RATIO 12; CARBON DIOXIDE 29 MMOL/L (21-32); CHLORIDE 106 MMOL/L (98-107); CREATININE SERUM 0.94 MG/DL (0.60-1.30); GFR ESTIMATED > 60; GLUCOSE 91 MG/DL (70-105); POTASSIUM 4.3 MMOL/L (3.6-5.0); SODIUM 140 MMOL/L (135-145)
[2020-10-04 09:21] LABS: ALANINE AMINOTRANSFERASE 17 U/L (0-55); ALBUMIN 4.2 GM/DL (3.2-4.5); ALKALINE PHOSPHATASE 51 U/L (40-136); BILIRUBIN,TOTAL < 0.2 MG/DL (0.1-1.0); LIPASE 32 U/L (8-78); TOTAL PROTEIN 6.6 GM/DL (6.4-8.2)
--- NOTE | 2020-10-04 09:22 | Diagnostic Imaging Report ---
PROCEDURE: CT abdomen and pelvis with contrast. TECHNIQUE: Multiple contiguous axial images were obtained through the abdomen and pelvis after administration of intravenous contrast. Auto Exposure Controls were utilized during the CT exam to meet ALARA standards for radiation dose reduction. All CT scans use one or more of the following dose optimizing techniques: automated exposure control, MA and/or KvP adjustment based on patient size and exam type or iterative reconstruction. INDICATION: Generalized abdominal pain, nausea and vomiting COMPARISON: None. FINDINGS: Lung bases are clear. The gallbladder, solid organs, vascular structures and bowel are unremarkable. The appendix is normal. There is no free air or free fluid. There is no significant constipation. There is no hernia. Prostate and urinary bladder are grossly normal. There is no lymphadenopathy. Osseous structures are age-appropriate. IMPRESSION: Negative CT abdomen and pelvis. Dictated by: Dictated on workstation # [id number]
[2020-10-04] MEDS ORDERED: ACHD5005 PO (12:02)
[2020-10-04] MEDS ORDERED: HYOS0.1283 SL (12:02)
[2020-10-04] MEDS ORDERED: ONDA4TAB11 PO (12:02)
[2020-10-04 12:12] VITALS: BP 122/68
== END 2020-10-04 12:17 | disposition home or self-care (01) ==
LOC: EDUNIT# 08:26 → ER FS 08:28
DX: R19.7 Diarrhea, unspecified (principal); K29.70 Gastritis, unspecified, without bleeding; Z20.822 Contact with and (suspected) exposure to COVID-19
CPT/HCPCS: 36415; 74177; 80053; 83605; 83690; 85025; 87635

== ENCOUNTER 2020-11-06 09:13 | Emergency (ER) | payer SELFPAY ==
[~2020-11-06] VITALS: Ht 170 cm; Wt 77.3 kg
[~2020-11-06 09:13] MED LIST changes: +ACHD5005 PO; +ONDA4TAB11 PO
--- NOTE | 2020-11-06 11:03 | ED Psychosocial ---
General Chief Complaint: Psych/Social Disorder Stated Complaint: PSYCH EVAL Source: patient History of Present Illness Date Seen by Provider: Nov 06, 2020 Time Seen by Provider: 10:45 Initial Comments 35-year-old male past medical history of depression and mental illness, presents with suicidal ideations. No attempt. Patient with long-term history of the same. Recent stressor, states his mother 4 months ago and it was the closest person to him. Patient getting counseling from a local mental health, which she states is useless. Not feeling like he is ever going to get better. Allergies and Home Medications Allergies Coded Allergies: No Known Drug Allergies (Unverified , 05/09/20) Home Medications Dicyclomine HCl 20 Mg Tablet, 20 MG PO QID PRN for abdominal cramps/pain Prescribed by: MELANIE QURESHI on 10/02/20 1016 Hydrocodone/Acetaminophen 1 Each Tablet, 1 TAB PO Q8H PRN for PAIN-SEVERE (8-10) Prescribed by: MELANIE QURESHI on 10/04/20 1202 Hyoscyamine Sulfate 0.125 Mg Tab.subl, 0.125 MG SL Q4H PRN for CRAMPS Prescribed by: MELANIE MELENDEZRT on 10/04/20 1202 Ondansetron 4 Mg Tab.rapdis, 4 MG SL Q4H PRN for NAUSEA/VOMITING Prescribed by: JETT GTZ on 05/09/20 1055 Ondansetron 4 Mg Tab.rapdis, 4 MG PO Q6H PRN for NAUSEA/VOMITING Prescribed by: MELANIE MELENDEZRT on 10/04/20 1202 Patient Home Medication List Home Medication List Reviewed: Yes Review of Systems Constitutional: No chills, No fever; malaise; No weakness EENTM: no symptoms reported Respiratory: no symptoms reported Cardiovascular: no symptoms reported Gastrointestinal: no symptoms reported Musculoskeletal: no symptoms reported Psychiatric/Neurological: Depressed, Emotional Problems Past Hywhojo-Jpmuhr-Hxflmh Hx Patient Social History Tobacco Use?: Yes Substance use?: Yes Substance type: Marijuana Seasonal Allergies Seasonal Allergies: No Past Medical History Surgeries: No Respiratory: No Cardiac: No Neurological: No Genitourinary: No Gastrointestinal: No Musculoskeletal: No Endocrine: No HEENT: No Cancer: No Psychosocial: No Integumentary: No Blood Disorders: No Physical Exam Vital Signs - First Documented 11/06/20 13:07 Temp 36.5 Pulse 87 Resp 18 B/P (MAP) 114/82 (93) Pulse Ox 100 O2 Delivery Room Air Capillary Refill : Height, Weight, BMI Height: '" Weight: lbs. oz. kg; 27.00 BMI Method: General Appearance: WD/WN, no apparent distress HEENT: PERRL/EOMI, normal ENT inspection Respiratory: chest non-tender, lungs clear Cardiovascular: regular rate, rhythm, no edema Gastrointestinal: non tender, soft Extremities: normal range of motion, non-tender, normal inspection Neurologic/Psychiatric: alert, normal mood/affect, oriented x 3 Progress/Results/Core Measures Results/Orders Lab Results Laboratory Tests Test 11/06/20 10:55 11/06/20 11:14 Range/Units White Blood Count 6.3 4.3-11.0 10^3/uL Red Blood Count 5.12 4.35-5.85 10^6/uL Hemoglobin 15.2 13.3-17.7 G/DL Hematocrit 45 40-54 % Mean Corpuscular Volume 88 80-99 FL Mean Corpuscular Hemoglobin 30 25-34 PG Mean Corpuscular Hemoglobin Concent 34 32-36 G/DL Red Cell Distribution Width 12.8 10.0-14.5 % Platelet Count 255 130-400 10^3/uL Mean Platelet Volume 9.8 7.4-10.4 FL Immature Granulocyte % (Auto) 0 % Neutrophils (%) (Auto) 65 42-75 % Lymphocytes (%) (Auto) 27 12-44 % Monocytes (%) (Auto) 7 0-12 % Eosinophils (%) (Auto) 1 0-10 % Basophils (%) (Auto) 0 0-10 % Neutrophils # (Auto) 4.1 1.8-7.8 X 10^3 Lymphocytes # (Auto) 1.7 1.0-4.0 X 10^3 Monocytes # (Auto) 0.5 0.0-1.0 X 10^3 Eosinophils # (Auto) 0.0 0.0-0.3 10^3/uL Basophils # (Auto) 0.0 0.0-0.1 10^3/uL Immature Granulocyte # (Auto) 0.0 0.0-0.1 10^3/uL Sodium Level 141 135-145 MMOL/L Potassium Level 3.9 3.6-5.0 MMOL/L Chloride Level 102 98-107 MMOL/L Carbon Dioxide Level 29 21-32 MMOL/L Anion Gap 10 5-14 MMOL/L Blood Urea Nitrogen 13 7-18 MG/DL Creatinine 1.01 0.60-1.30 MG/DL Estimat Glomerular Filtration Rate 85 BUN/Creatinine Ratio 13 Glucose Level 99 70-105 MG/DL Calcium Level 10.1 8.5-10.1 MG/DL Corrected Calcium 8.5-10.1 MG/DL Total Bilirubin 0.6 0.1-1.0 MG/DL Aspartate Amino Transf (AST/SGOT) 15 5-34 U/L Alanine Aminotransferase (ALT/SGPT) 18 0-55 U/L Alkaline Phosphatase 86 40-136 U/L Total Protein 7.7 6.4-8.2 GM/DL Albumin 4.7 H 3.2-4.5 GM/DL Salicylates Level < 0.3 L 5.0-20.0 MG/DL Acetaminophen Level < 10 L 10-30 UG/ML Serum Alcohol < 10 <10 MG/DL Urine Color DARK YELLOW Urine Clarity SLT CLOUDY Urine pH 5.5 5-9 Urine Specific [employer] >=1030 1.016-1.022 Urine Protein TRACE H NEGATIVE Urine Glucose (UA) TRACE H NEGATIVE Urine Ketones NEGATIVE NEGATIVE Urine Nitrite NEGATIVE NEGATIVE Urine Bilirubin 1+ H NEGATIVE Urine Urobilinogen 0.2 < = 1.0 MG/DL Urine Leukocyte Esterase NEGATIVE NEGATIVE Urine RBC (Auto) NEGATIVE NEGATIVE Urine RBC RARE /HPF Urine WBC 2-5 /HPF Urine Squamous Epithelial Cells 0-2 /HPF Urine Crystals NONE /LPF Urine Bacteria MODERATE H /HPF Urine Casts NONE /LPF Urine Mucus LARGE H /LPF Urine Culture Indicated YES Urine Opiates Screen NEGATIVE NEGATIVE Urine Oxycodone Screen NEGATIVE NEGATIVE Urine Methadone Screen NEGATIVE NEGATIVE Urine Propoxyphene Screen NEGATIVE NEGATIVE Urine Barbiturates Screen NEGATIVE NEGATIVE Ur Tricyclic Antidepressants Screen NEGATIVE NEGATIVE Urine Phencyclidine Screen NEGATIVE NEGATIVE Urine Amphetamines Screen NEGATIVE NEGATIVE Urine Methamphetamines Screen NEGATIVE NEGATIVE Urine Benzodiazepines Screen POSITIVE H NEGATIVE Urine Cocaine Screen POSITIVE H NEGATIVE Urine Cannabinoids Screen POSITIVE H NEGATIVE My Orders Orders - ROVENSTINE,SHEEBA L DO Acetaminophen (11/06/20 10:55) Alcohol (11/06/20 10:55) Salicylate (11/06/20 10:55) Cbc With Automated Diff (11/06/20 10:55) Comprehensive Metabolic Panel (11/06/20 10:55) Urinalysis (11/06/20 10:55) Drug Screen Stat (Urine) (11/06/20 10:55) Urine Culture (11/06/20 11:14) Vital Signs/I&O 11/06/20 11/06/20 13:07 15:54 Temp 36.5 36.5 Pulse 87 87 Resp 18 18 B/P (MAP) 114/82 (93) 114/82 (93) Pulse Ox 100 100 O2 Delivery Room Air Departure Impression Primary Impression: Depression Qualified Codes: F32.9 - Major depressive disorder, single episode, unspecified Additional Impression: Suicidal ideation Disposition: 01 HOME, SELF-CARE Condition: Stable Departure-Patient Inst. Decision time for Depature: 13:39 Referrals: NO,LOCAL PHYSICIAN (PCP/Family) Primary Care Physician Patient Instructions: Depression, Adult ED, Suicide Prevention Add. Discharge Instructions: Follow up with the Mental Health provider scheduled to see you tomorrow. Return to the ER for any worsening symptoms All discharge instructions reviewed with patient and/or family. Voiced u nderstanding. SHEEBA GOMEZ DO Nov 06, 2020 11:03
[2020-11-06 11:05] LABS: BASOPHILS % (AUTO) 0 % (0-10); EOSINOPHILS % (AUTO) 1 % (0-10); HEMATOCRIT 45 % (40-54); HEMOGLOBIN 15.2 G/DL (13.3-17.7); LYMPHOCYTES % (AUTO) 27 % (12-44); MEAN CORPUSCULAR HEMOGLOBIN 30 PG (25-34); MEAN CORPUSCULAR HGB CONC 34 G/DL (32-36); MEAN CORPUSCULAR VOLUME 88 FL (80-99); MEAN PLATELET VOLUME 9.8 FL (7.4-10.4); MONOCYTES % (AUTO) 7 % (0-12); NEUTROPHILS % (AUTO) 65 % (42-75); PLATELET COUNT 255 10^3/uL (130-400); WHITE BLOOD COUNT 6.3 10^3/uL (4.3-11.0)
[2020-11-06 11:06] LABS: LYMPHOCYTES # (AUTO) 1.7 X 10^3 (1.0-4.0); MONOCYTES # (AUTO) 0.5 X 10^3 (0.0-1.0); NEUTROPHILS # (AUTO) 4.1 X 10^3 (1.8-7.8)
[2020-11-06 11:30] LABS: CHLORIDE 102 MMOL/L (98-107); POTASSIUM 3.9 MMOL/L (3.6-5.0); SODIUM 141 MMOL/L (135-145)
[2020-11-06 11:31] LABS: ACETAMINOPHEN < 10 UG/ML (10-30); ALANINE AMINOTRANSFERASE 18 U/L (0-55); ALBUMIN 4.7 GM/DL (3.2-4.5); ALKALINE PHOSPHATASE 86 U/L (40-136); BILIRUBIN,TOTAL 0.6 MG/DL (0.1-1.0); BUN/CREATININE RATIO 13; CALCIUM 10.1 MG/DL (8.5-10.1); CARBON DIOXIDE 29 MMOL/L (21-32); CREATININE SERUM 1.01 MG/DL (0.60-1.30); GFR ESTIMATED 85; GLUCOSE 99 MG/DL (70-105); SALICYLATE < 0.3 MG/DL (5.0-20.0); TOTAL PROTEIN 7.7 GM/DL (6.4-8.2)
[2020-11-06 11:34] LABS: BENZODIAZEPINES SCREEN URINE POSITIVE (NEGATIVE); CANNABINOID SCREEN, URINE POSITIVE (NEGATIVE); COCAINE SCREEN URINE POSITIVE (NEGATIVE)
[2020-11-06 11:35] LABS: AMPHETAMINE SCREEN, URINE NEGATIVE (NEGATIVE); BARBITURATE SCREEN URINE NEGATIVE (NEGATIVE); METHADONE STAT NEGATIVE (NEGATIVE); METHAMPHETAMINE SCREEN URINE S NEGATIVE (NEGATIVE); OPIATE SCREEN URINE NEGATIVE (NEGATIVE); OXYCODONE STAT NEGATIVE (NEGATIVE); PROPOXYPHENE STAT NEGATIVE (NEGATIVE); TRICYCLIC ANTIDEPRESSANTS SCRE NEGATIVE (NEGATIVE)
[2020-11-06 12:04] LABS: CLARITY,URINE SLT CLOUDY; COLOR,URINE DARK YELLOW; GLUCOSE, URINE (UA) TRACE (NEGATIVE); KETONES,URINE NEGATIVE (NEGATIVE); NITRITE,URINE NEGATIVE (NEGATIVE); PH,URINE 5.5 (5-9); PROTEIN,URINE TRACE (NEGATIVE)
[2020-11-06 12:09] LABS: BACTERIA,URINE MODERATE /HPF; BILIRUBIN,URINE 1+ (NEGATIVE); LEUKOCYTE ESTERASE ,URINE NEGATIVE (NEGATIVE); RBC,URINE RARE /HPF
[2020-11-06 12:10] LABS: SQUAMOUS EPITHELIAL CELL,UR 0-2 /HPF
[2020-11-06 15:54] VITALS: BP 114/82
== END 2020-11-06 15:53 | disposition home or self-care (01) ==
LOC: EDUNIT# 09:13 → ER FS 09:15
DX: F32.9 Major depressive disorder, single episode, unspecified (principal); R45.851 Suicidal ideations
CPT/HCPCS: 36415; 80053; 80306; 81000; 85025; 87088; 99283; G0480 ×3; 80320; 80329

== ENCOUNTER 2020-11-07 09:45 | Emergency (ER) | payer SELFPAY ==
--- NOTE | 2020-11-07 10:02 | ED Psychosocial ---
General Chief Complaint: Psych/Social Disorder Stated Complaint: SUICIDAL IDEATION Source: patient, old records History of Present Illness Date Seen by Provider: Nov 07, 2020 Time Seen by Provider: 09:47 Initial Comments 35-year-old male presenting with complaints of suicidal ideation. He states that he had woke up in a "shitty mood" and called [facility] to set up his follow up appointment and was told by [facility] to come to the ED to be admitted. Patient reports that his plan was to overdose on pills. He denies take anything to hurt himself this morning. He was seen in the emergency department on Friday afternoon November 06. He was medically cleared and discharged home with a safety plan. However, this morning when calling the mental health department for follow up he reports they told him he needed to be admitted and to go to the ED. Associated Symptoms: anxiety, suicidal ideation (plan of overdose on pills) Allergies and Home Medications Allergies Coded Allergies: No Known Drug Allergies (Unverified , 05/09/20) Home Medications Dicyclomine HCl 20 Mg Tablet, 20 MG PO QID PRN for abdominal cramps/pain Prescribed by: MELANIE QURESHI on 10/02/20 1016 Hydrocodone/Acetaminophen 1 Each Tablet, 1 TAB PO Q8H PRN for PAIN-SEVERE (8-10) Prescribed by: MELANIE MELENDEZRT on 10/04/20 1202 Hyoscyamine Sulfate 0.125 Mg Tab.subl, 0.125 MG SL Q4H PRN for CRAMPS Prescribed by: MELANIE ORTIZYART on 10/04/20 1202 Ondansetron 4 Mg Tab.rapdis, 4 MG SL Q4H PRN for NAUSEA/VOMITING Prescribed by: JETT GTZ on 05/09/20 1055 Ondansetron 4 Mg Tab.rapdis, 4 MG PO Q6H PRN for NAUSEA/VOMITING Prescribed by: MELANIE ORTIZYART on 10/04/20 1202 Patient Home Medication List Home Medication List Reviewed: Yes Review of Systems Constitutional: No chills, No fever EENTM: no symptoms reported Respiratory: no symptoms reported Cardiovascular: no symptoms reported Gastrointestinal: no symptoms reported Genitourinary: no symptoms reported Musculoskeletal: no symptoms reported Skin: no symptoms reported Psychiatric/Neurological: Depressed Past Jimlfzz-[id number]-Womwfk Hx Patient Social History Tobacco Use?: Yes Tobacco type used: Cigarettes Smoking Status: Current Everyday Smoker Use of E-Cig and/or Vaping dev: No Substance use?: Yes Substance type: Nicotine, Marijuana Alcohol Use?: Yes Pt feels they are or have been: No Seasonal Allergies Seasonal Allergies: No Past Medical History Surgeries: No Respiratory: No Cardiac: No Neurological: No Genitourinary: No Gastrointestinal: No Musculoskeletal: No Endocrine: No HEENT: No Cancer: No Psychosocial: No Integumentary: No Blood Disorders: No Physical Exam Vital Signs - First Documented 11/07/20 10:00 Temp 36.6 Pulse 97 Resp 16 B/P (MAP) 142/84 (103) Pulse Ox 100 O2 Delivery Room Air Capillary Refill : Height, Weight, BMI Height: '" Weight: lbs. oz. kg; 26.00 BMI Method: General Appearance: WD/WN, no apparent distress HEENT: PERRL/EOMI Neck: non-tender, full range of motion, supple, normal inspection Respiratory: chest non-tender, lungs clear, normal breath sounds, no respiratory distress, no accessory muscle use Cardiovascular: normal peripheral pulses, regular rate, rhythm Gastrointestinal: normal bowel sounds, non tender, soft, no pulsatile mass Extremities: normal range of motion, non-tender, normal capillary refill Neurologic/Psychiatric: student development advisor II-XII nml as tested, alert, oriented x 3, other (flat affect) Appearance/Memory: appropriate appearance Behavior/Eye Contact: cooperative, normal speech Thoughts/Hallucinations: no apparent hallucination Skin: normal color, warm/dry Progress/Results/Core Measures Results/Orders Lab Results Laboratory Tests Test 11/07/20 10:16 11/07/20 10:20 11/07/20 10:35 Range/Units White Blood Count 8.7 4.3-11.0 10^3/uL Red Blood Count 5.02 4.35-5.85 10^6/uL Hemoglobin 14.8 13.3-17.7 G/DL Hematocrit 44 40-54 % Mean Corpuscular Volume 88 80-99 FL Mean Corpuscular Hemoglobin 29 25-34 PG Mean Corpuscular Hemoglobin Concent 33 32-36 G/DL Red Cell Distribution Width 12.6 10.0-14.5 % Platelet Count 235 130-400 10^3/uL Mean Platelet Volume 10.1 7.4-10.4 FL Immature Granulocyte % (Auto) 0 % Neutrophils (%) (Auto) 77 H 42-75 % Lymphocytes (%) (Auto) 17 12-44 % Monocytes (%) (Auto) 5 0-12 % Eosinophils (%) (Auto) 1 0-10 % Basophils (%) (Auto) 0 0-10 % Neutrophils # (Auto) 6.7 1.8-7.8 X 10^3 Lymphocytes # (Auto) 1.5 1.0-4.0 X 10^3 Monocytes # (Auto) 0.5 0.0-1.0 X 10^3 Eosinophils # (Auto) 0.1 0.0-0.3 10^3/uL Basophils # (Auto) 0.0 0.0-0.1 10^3/uL Immature Granulocyte # (Auto) 0.0 0.0-0.1 10^3/uL Sodium Level 140 135-145 MMOL/L Potassium Level 4.3 3.6-5.0 MMOL/L Chloride Level 104 98-107 MMOL/L Carbon Dioxide Level 27 21-32 MMOL/L Anion Gap 9 5-14 MMOL/L Blood Urea Nitrogen 18 7-18 MG/DL Creatinine 0.87 0.60-1.30 MG/DL Estimat Glomerular Filtration Rate 100 BUN/Creatinine Ratio 21 Glucose Level 133 H 70-105 MG/DL Calcium Level 9.5 8.5-10.1 MG/DL Corrected Calcium 9.3 8.5-10.1 MG/DL Total Bilirubin 0.2 0.1-1.0 MG/DL Aspartate Amino Transf (AST/SGOT) 13 5-34 U/L Alanine Aminotransferase (ALT/SGPT) 18 0-55 U/L Alkaline Phosphatase 78 40-136 U/L Total Protein 6.9 6.4-8.2 GM/DL Albumin 4.3 3.2-4.5 GM/DL Salicylates Level < 0.3 L 5.0-20.0 MG/DL Urine Opiates Screen NEGATIVE NEGATIVE Urine Oxycodone Screen NEGATIVE NEGATIVE Urine Methadone Screen NEGATIVE NEGATIVE Urine Propoxyphene Screen NEGATIVE NEGATIVE Acetaminophen Level < 10 L 10-30 UG/ML Urine Barbiturates Screen NEGATIVE NEGATIVE Ur Tricyclic Antidepressants Screen NEGATIVE NEGATIVE Urine Phencyclidine Screen NEGATIVE NEGATIVE Urine Amphetamines Screen NEGATIVE NEGATIVE Urine Methamphetamines Screen NEGATIVE NEGATIVE Urine Benzodiazepines Screen POSITIVE H NEGATIVE Urine Cocaine Screen POSITIVE H NEGATIVE Urine Cannabinoids Screen POSITIVE H NEGATIVE Serum Alcohol < 10 <10 MG/DL Urine Color YELLOW Urine Clarity CLOUDY H Urine pH 7.0 5-9 Urine Specific [place] 1.020 1.016-1.022 Urine Protein NEGATIVE NEGATIVE Urine Glucose (UA) NEGATIVE NEGATIVE Urine Ketones NEGATIVE NEGATIVE Urine Nitrite NEGATIVE NEGATIVE Urine Bilirubin NEGATIVE NEGATIVE Urine Urobilinogen 1.0 < = 1.0 MG/DL Urine Leukocyte Esterase TRACE H NEGATIVE Urine RBC (Auto) NEGATIVE NEGATIVE Urine RBC 0-2 /HPF Urine WBC 5-10 H /HPF Urine Squamous Epithelial Cells 0-2 /HPF Urine Crystals PRESENT H /LPF Urine Amorphous Sediment MOD AKIL URATES H /LPF Urine Bacteria NEGATIVE /HPF Urine Casts NONE /LPF Urine Mucus MODERATE H /LPF Urine Culture Indicated CULTURE PENDING Influenza Type A (RT-PCR) Not Detected Not Detecte Influenza Type B (RT-PCR) Not Detected Not Detecte SARS-CoV-2 RNA (RT-PCR) Not Detected Not Detecte My Orders Orders - MELANIE QURESHI MD Ua Culture If Indicated (11/07/20 10:12) Cbc With Automated Diff (11/07/20 10:12) Comprehensive Metabolic Panel (11/07/20 10:12) Alcohol (11/07/20 10:12) Drug Screen Stat (Urine) (11/07/20 10:12) Acetaminophen (11/07/20 10:12) Salicylate (11/07/20 10:12) Ekg Tracing (11/07/20 10:12) Bh Status Checks/Observation Q15M (11/07/20 10:12) Covid 19 Inhouse Test (11/07/20 10:28) Influenza A And B By Pcr (11/07/20 10:28) Vital Signs/I&O 11/07/20 11/07/20 10:00 14:35 Temp 36.6 36.6 Pulse 97 87 Resp 16 16 B/P (MAP) 142/84 (103) 137/79 (103) Pulse Ox 100 100 O2 Delivery Room Air Room Air Progress Progress Note #1: Progress Note From review of his labs done at 11 AM on November 06 he was medically stable and clear and continues to improve that right now. According to [facility] he needs repeated lab work and urine to ensure nothing has changed since he left the ED yesterday evening. Progress Note #2: Time: 10:55 Progress Note [facility] screened patient and plan inpatient placement. COVID swab pending. Progress Note #3: Time: 11:45 Progress Note labs all stable and no acute significant abnormality other than similar to FridayNovember 06, he has Benzodiazepines, Cocaine and THC in his UDS. His Urine is concentrated with some bacteria present so a culture was sent yesterday. He is not having UTI symptoms and does not have LE or Nitrites. His urine is not as concentrated today with improved specific gravity. Awaiting Covid swab results and placement. Progress Note #4: Time: 13:30 Progress Note [facility] helped arrange admit to [facility] in [place] with Dr. Snell as accepting physician. Initial ECG Impression Date: Nov 07, 2020 Initial ECG Impression Time: 10:25 Initial ECG Rate: 82 Initial ECG Rhythm: Normal Sinus Initial ECG Comparisson: Unchanged Comment Sinus rhythm with heart rate of 82 bpm. DE interval [address] elevation. QT interval 325 ms with a QTc interval 438 ms. Appears similar to prior tracings in the system. Departure Impression Primary Impression: Suicidal ideation Additional Impression: Polysubstance abuse Disposition: 65 XFER TO PSYCH HOSP/UNIT Condition: Stable Transfer Transfer Reason: Exceeds level of care (Inpatient Psychiatric services) Time Spoke to Accepting Phy: 13:[address] Snell from [facility] in [place] accepted pt for transfer. Transfer Facility: [facility] Method of Transfer: Private Vehicle ([facility]) Departure-Patient Inst. Referrals: NO,LOCAL PHYSICIAN (PCP/Family) Primary Care Physician MELANIE QURESHI MD Nov 07, 2020 10:02
[2020-11-07 10:57] LABS: AMPHETAMINE SCREEN, URINE NEGATIVE (NEGATIVE); BARBITURATE SCREEN URINE NEGATIVE (NEGATIVE); BENZODIAZEPINES SCREEN URINE POSITIVE (NEGATIVE); CANNABINOID SCREEN, URINE POSITIVE (NEGATIVE); COCAINE SCREEN URINE POSITIVE (NEGATIVE); HEMATOCRIT 44 % (40-54); HEMOGLOBIN 14.8 G/DL (13.3-17.7); MEAN CORPUSCULAR HEMOGLOBIN 29 PG (25-34); MEAN CORPUSCULAR HGB CONC 33 G/DL (32-36); MEAN CORPUSCULAR VOLUME 88 FL (80-99); METHADONE STAT NEGATIVE (NEGATIVE); METHAMPHETAMINE SCREEN URINE S NEGATIVE (NEGATIVE); OPIATE SCREEN URINE NEGATIVE (NEGATIVE); OXYCODONE STAT NEGATIVE (NEGATIVE); PROPOXYPHENE STAT NEGATIVE (NEGATIVE); TRICYCLIC ANTIDEPRESSANTS SCRE NEGATIVE (NEGATIVE); WHITE BLOOD COUNT 8.7 10^3/uL (4.3-11.0)
[2020-11-07 10:58] LABS: BASOPHILS % (AUTO) 0 % (0-10); EOSINOPHILS # (AUTO) 0.1 10^3/uL (0.0-0.3); EOSINOPHILS % (AUTO) 1 % (0-10); LYMPHOCYTES # (AUTO) 1.5 X 10^3 (1.0-4.0); LYMPHOCYTES % (AUTO) 17 % (12-44); MEAN PLATELET VOLUME 10.1 FL (7.4-10.4); MONOCYTES # (AUTO) 0.5 X 10^3 (0.0-1.0); MONOCYTES % (AUTO) 5 % (0-12); NEUTROPHILS # (AUTO) 6.7 X 10^3 (1.8-7.8); NEUTROPHILS % (AUTO) 77 % (42-75); PLATELET COUNT 235 10^3/uL (130-400)
[2020-11-07 10:59] LABS: BACTERIA,URINE NEGATIVE /HPF; BILIRUBIN,URINE NEGATIVE (NEGATIVE); CLARITY,URINE CLOUDY; COLOR,URINE YELLOW; GLUCOSE, URINE (UA) NEGATIVE (NEGATIVE); KETONES,URINE NEGATIVE (NEGATIVE); LEUKOCYTE ESTERASE ,URINE TRACE (NEGATIVE); NITRITE,URINE NEGATIVE (NEGATIVE); PROTEIN,URINE NEGATIVE (NEGATIVE); RBC,URINE 0-2 /HPF
[2020-11-07 11:00] LABS: AMORPHOUS SEDIMENT,UR MOD AMOR URATES /LPF; SQUAMOUS EPITHELIAL CELL,UR 0-2 /HPF
[2020-11-07 11:05] LABS: ACETAMINOPHEN < 10 UG/ML (10-30); ALANINE AMINOTRANSFERASE 18 U/L (0-55); ALBUMIN 4.3 GM/DL (3.2-4.5); ALKALINE PHOSPHATASE 78 U/L (40-136); BILIRUBIN,TOTAL 0.2 MG/DL (0.1-1.0); BUN/CREATININE RATIO 21; CALCIUM 9.5 MG/DL (8.5-10.1); CARBON DIOXIDE 27 MMOL/L (21-32); CHLORIDE 104 MMOL/L (98-107); CREATININE SERUM 0.87 MG/DL (0.60-1.30); GFR ESTIMATED 100; GLUCOSE 133 MG/DL (70-105); POTASSIUM 4.3 MMOL/L (3.6-5.0); SALICYLATE < 0.3 MG/DL (5.0-20.0); SODIUM 140 MMOL/L (135-145); TOTAL PROTEIN 6.9 GM/DL (6.4-8.2)
[2020-11-07 14:35] VITALS: BP 137/79
--- OUTSIDE RECORDS SUMMARY | 2020-11-08 03:17 | XMS REPORT | Encounter Summary ---
Author Author [facility] Address Unknown Phone Unavailable Care Team Providers Care Director Of Event Management Name Role Phone Unassigned, None PCP Unavailable Encounter Details Care Team Description Date Type Department 11/07/2020 Travel Social History Date Tobacco Use Types Packs/Day Years Used Current Every Day Smoker 2 Smokeless Tobacco: Never Used Comments Alcohol Use Standard Drinks/Week once every 3 months/ occassional Yes 0 (1 standard drink = 0.6 o z pure alcohol) Control Partners Comments Sexually Active Female Not Currently Sex Assigned at Date Recorded Male 11/07/2020 6:23 PM CDT Industry Job Start Date Occupation Not on file Not on file Not on file Date Recorded COVID-19 Exposure Response 11/07/2020 5:00 PM CDT In the last month, have you been in contact with No / Unsure someone who was confirmed or suspected to have Coronavirus / COVID-19? documented as of this encounter Plan of Treatment Not on filedocumented as of this encounter Visit Diagnoses Not on filedocumented in this encounter Additional Health Concerns Noted Time Assessment 11/07/2020 9:15 PM CDT A fall risk assessment has been complet ed for the patient documented as of this encounter Care Teams Start Date End Date Director Of Event Management Relationship Specialty 11/07/20 Unassigned, None PCP - General [place] documented as of this encounter
--- OUTSIDE RECORDS SUMMARY | 2020-11-08 03:17 | XMS REPORT | Clinical Summary ---
Author Author [facility] [place][Note 2] Address Unknown Phone Unavailable Care Team Providers Care Principal Cloud Architect Name Role Phone Unassigned, None PCP Unavailable Allergies No known active allergies Medications No known medications Active Problems Problem Noted Date Mood disorder 11/07/2020 Encounters Care Team Description Date Type Specialty 11/07/2020 Travel from Last 3 Months Family History Medical History Relation Name Comments Heart disease Father No Known Problems Maternal Grandmother Diabetes Mother Stroke Mother Relation Name Status Comments Father Alive Maternal Grandfather Maternal Grandmother Alive Mother Paternal Grandfather Paternal Grandmother Social History Date Tobacco Use Types Packs/Day Years Used Current Every Day Smoker 2 Smokeless Tobacco: Never Used Tobacco Cessation: Ready to Quit: No; Co unseling Given: No Comments Alcohol Use Standard Drinks/Week once every [...] or suspected to have Coronavirus / COVID-19? Last Filed Vital Signs Reading Time Taken Comments Vital Sign 120/75 11/07/2020 7:50 PM CDT Blood Pressure 70 11/07/2020 7:50 PM CDT Pulse 36.6 C (97.9 F) 11/07/2020 7:50 PM CDT Temperature 16 11/07/2020 7:50 PM CDT Respiratory Rate 100% 11/07/2020 7:50 PM CDT Oxygen Saturation - - Inhaled Oxygen Concentration 81.6 kg (180 lb) 11/07/2020 5:53 PM CDT Weight 170.2 cm (5' 7") 11/07/2020 5:53 PM CDT Height 28.19 11/07/2020 5:53 PM CDT Body Mass Index Plan of Treatment Health Maintenance Due Date Last Done Comments Varicella Vaccines (1 of 10/02/1987 2 - 2-dose childhood series) Pneumo-Vaccine: 65+Yrs (1 1992 of 2 - PPSV23) Pneumo-Vaccine: Peds (0-5 1992 Yrs) & At-Risk Patients (6-64 Yrs) (1 of 2 - PPSV23) COVID-19 Vaccine (1) 1998 Hepatitis C Screening 2004 DTaP,Tdap,and Td Vaccines 2005 (1 - Tdap) MMR Vaccines-Adult 2005 Influenza Vaccine (#1) 2020 HIB Vaccines Aged Out No longer eligible based on patient's age to complete this topic IPV Vaccines Aged Out No longer eligible based on patient's age to complete this topic Meningococcal Vaccine Aged Out No longer eligib le based on patient's age to complete this topic Rotavirus Vaccines Aged Out No longer eligible based on patient's age to complete this topic Results Not on filefrom Last 3 Months Advance Directives For more information, please contact: [phone] Patient Wheelchair Van Driver Explanation Type Date Recorded Advance Directives and Living Will Power of Per Assessment Nurse Date Inactivated Comments Code Status Date Activated Full Code 11/07/2020 5:31 PM Care Teams Start Date End Date Principal Cloud Architect Relationship Specialty 11/07/20 Unassigned, None PCP - General EZEQUIEL
== END 2020-11-07 14:29 ==
LOC: EDUNIT# 09:45 → ER FS 09:47
DX: R45.851 Suicidal ideations (principal); F19.10 Other psychoactive substance abuse, uncomplicated; F17.210 Nicotine dependence, cigarettes, uncomplicated; Z20.822 Contact with and (suspected) exposure to COVID-19
CPT/HCPCS: 36415; 80053; 80306; 81000; 85025; 87636; 93005; 99283; G0480 ×3; 80320; 80329